=== PATIENT | female | born 1995 | race African-American/Black ===

== ENCOUNTER 2023-03-27 10:31 | Emergency (ER) | payer MEDICAID, OTHER ==
[~2023-03-27] VITALS: Ht 167.6 cm; Wt 120.0 kg
[2023-03-27 10:48] VITALS: BP 112/73; TEMP 98.1
[2023-03-27 11:26] VITALS: PULSE 83; RESP 18; O2SAT 100
[2023-03-27 11:52] LABS: Urine Bacteria FEW /hpf (None Seen); Urine Blood Negative /uL (Negative); Urine Clarity HAZY (Clear); Urine Color Brown (Yellow); Urine Mucus FEW (None Seen); Urine Protein, UAD 1+ (Negative); Urine Specific Gravity 1.022 (1.001-1.035); Urine WBC 2 /hpf (0 - 5); Urine pH 5.5 (5.0-8.0)
[2023-03-27] MEDS ORDERED: PHENAZOPYRIDINE HCL 100 MG TAB PO ONE (12:00)
[2023-03-27] MEDS ORDERED: BACDST PO (12:11)
== END 2023-03-27 12:17 | disposition home or self-care (01) ==
LOC: ER 10:31
DX: N39.0 Urinary tract infection, site not specified (principal)
CPT/HCPCS: 81001